=== PATIENT | female | born 1995 | race Asian ===

== ENCOUNTER 2020-12-04 15:52 | Inpatient (IN) | payer MEDICAID, OTHER ==
[~2020-12-04] VITALS: Ht 160 cm; Wt 56.7 kg
[2020-12-04 17:01] LABS: BASOPHILS % (AUTO) 0.4 % (0.0-2.0); EOSINOPHILS % (AUTO) 0 % (1.0-6.0); HEMATOCRIT 40.2 % (36-46); HEMOGLOBIN 13.3 g/dL (12.0-16.0); LYMPHOCYTES # (AUTO) 1.2 K/uL (1.0-4.8); LYMPHOCYTES % (AUTO) 13.7 % (22.0-44.0); MEAN CORPUSCULAR HEMOGLOBIN 27.3 pg (26.0-34.0); MEAN CORPUSCULAR HGB CONC 33.2 G/dL (31.0-37.0); MEAN CORPUSCULAR VOLUME 82 fL (80-100); MONOCYTES # (AUTO) 0.5 K/uL (0.1-1.0); NEUTROPHILS # (AUTO) 7.2 K/uL (1.8-7.7); NEUTROPHILS % (AUTO) 79.9 % (40.0-70.0); PLATELET COUNT (AUTO) 391 K/uL (150-450); RED BLOOD CELL COUNT(AUTO) 4.88 MIL/uL (4.00-5.20); RED CELL DISTRIBUTION WIDTH 13.3 % (11.5-14.5)
[2020-12-04 17:09] LABS: ANION GAP 15 mmol/L (8-16); CALCIUM, TOTAL 9.8 mg/dL (8.8-10.5); CARBON DIOXIDE 26 mmol/L (22-29); CHLORIDE 102 mmol/L (98-107); CREATININE 1.02 mg/dL (0.60-1.30); GLOMERULAR FILTR. RATE CALC > 60 mL/min (>60); GLUCOSE,RANDOM 79 mg/dL (70-110); SODIUM SERUM 143 mmol/L (136-145); UREA NITROGEN, BLOOD 18 mg/dL (7-18)
[2020-12-04 17:15] LABS: ALANINE AMINOTRANSFERASE 21 U/L (12-78); ALKALINE PHOSPHATASE 82 U/L (46-116); ASPARTATE AMINOTRANSFERASE 20 U/L (15-37); BILIRUBIN,TOTAL 0.8 mg/dL (0.1-1.0); TOTAL PROTEIN, SERUM 8.8 g/dL (6.4-8.2)
[2020-12-04] MEDS ORDERED: LORazepam 2 MG TABLET PO PRN (17:30)
[2020-12-04] MEDS ORDERED: ZOLPIDEM TARTRATE 10 MG TABLET PO PRN (17:30)
[2020-12-04] MEDS ORDERED: HALOPERIDOL 5 MG TABLET PO PRN (17:30)
[2020-12-04 18:34] LABS: COVID AG,FIA SOURCE NASOPHARYNGEAL
[2020-12-04 18:40] LABS: APPEARANCE,URINE CLOUDY (CLEAR); BILIRUBIN,URINE NEGATIVE (NEGATIVE); GLUCOSE, URINE (UA) NEGATIVE (NEGATIVE); KETONES,URINE >=80 mg/dL (NEGATIVE); LEUKOCYTE ESTERASE ,URINE TRACE (NEGATIVE); NITRATE,URINE POSITIVE (NEGATIVE); OCCULT BLOOD,URINE NEGATIVE (NEGATIVE); PROTEIN,URINE POS 1+ (NEGATIVE); UROBILINOGEN,URINE 0.2 mg/dL (<=1.0)
[2020-12-04 19:01] LABS: BACTERIA,URINE Moderate /HPF (None Seen); RBC,URINE None Seen /HPF (0-2); SQUAMOUS EPITHELIAL CELL,UR Moderate /LPF (None Seen)
[2020-12-04 19:48] VITALS: BP 138/91
[2020-12-05 00:30] VITALS: BP 132/73
[2020-12-05 06:39] LABS: CHOL/HDL RATIO 3.2 (3.9-5.7); FREE T4 (FREE THYROXINE) 1.4 ng/dL (0.76-1.46); THYROID STIMULATING HORMONE 1.15 uIU/mL (0.36-3.74)
[2020-12-05 08:00] VITALS: BP 142/96
[2020-12-05] MEDS ORDERED: ACETAMINOPHEN 325 MG TABLET PO PRN (09:45)
[2020-12-05] MEDS ORDERED: ALBUTEROL SULFATE HFA 90 MCG/PUFF 8 GM INHALER IH PRN (09:45)
[2020-12-05] MEDS ORDERED: PETROLATUM,WHITE 28 GM JELLY TP PRN (09:45)
[2020-12-05] MEDS ORDERED: ONDANSETRON HCL 4 MG TABLET PO PRN (09:45)
[2020-12-05] MEDS ORDERED: MAGNESIUM HYDROXIDE SUSPENSION 30 ML UDCUP PO PRN (09:45)
[2020-12-05] MEDS ORDERED: DOCUSATE SODIUM 100 MG CAPSULE PO PRN (09:45)
[2020-12-05] MEDS ORDERED: LOPERAMIDE HCL 2 MG CAPSULE PO PRN (09:45)
[2020-12-05] MEDS ORDERED: OMEPRAZOLE 20 MG CAPSULE PO PRN (09:45)
[2020-12-05] MEDS ORDERED: MAG HYDROX/AL HYDROX/SIMETH ES 30 ML SUSPENSION UDCUP PO PRN (09:45)
[2020-12-05] MEDS ORDERED: BACITRACIN 28 GM OINTMENT TP PRN (09:45)
[2020-12-05] MEDS ORDERED: IBUPROFEN 600 MG TABLET PO PRN (09:45)
[2020-12-05] MEDS ORDERED: BENZOCAINE/MENTHOL LOZENGE PO PRN (09:45)
[2020-12-05] MEDS ORDERED: CloNIDine HCL 0.1 MG TABLET PO PRN (09:45)
[2020-12-05 10:04] LABS: GLUCOMETER DEV NAME(LOC) 3E.I 2; GLUCOSE,POINT OF CARE 141 MG/DL (70-110)
[2020-12-05] MEDS: CEPHALEXIN MONOHYDRATE 500 MG CAPSULE PO SCH ×2 (10:26→16:38)
[2020-12-05 13:07] LABS: AMPHET/METH SCREEN,URINE NEGATIVE (NEGATIVE); BARBITURATE SCREEN, URINE NEGATIVE (NEGATIVE); BENZODIAZEPINES SCREEN,URINE NEGATIVE (NEGATIVE); CANNABINOID SCREEN,URINE NEGATIVE (NEGATIVE); COCAINE SCREEN,URINE NEGATIVE (NEGATIVE); METHADONE SCREEN, URINE NEGATIVE (NEGATIVE); OPIATE SCREEN,URINE NEGATIVE (NEGATIVE); PHENCYCLIDINE SCREEN,URINE NEGATIVE (NEGATIVE)
[2020-12-05 16:36] VITALS: BP 119/75
[2020-12-06 08:50] VITALS: BP 85/51
[2020-12-06] MEDS: CEPHALEXIN MONOHYDRATE 500 MG CAPSULE PO SCH ×2 (09:41→17:08)
[2020-12-06 20:00] VITALS: BP 126/74
[2020-12-07 00:19] VITALS: BP 139/84
[2020-12-07 08:48] VITALS: BP 138/62
[2020-12-07] MEDS: CEPHALEXIN MONOHYDRATE 500 MG CAPSULE PO SCH ×2 (09:13→17:22)
[2020-12-07] MEDS: CITALOPRAM HYDROBROMIDE 20 MG TABLET PO SCH (09:13)
[2020-12-07 17:58] LABS: AMPHET/METH SCREEN,URINE NEGATIVE (NEGATIVE); BARBITURATE SCREEN, URINE NEGATIVE (NEGATIVE); BENZODIAZEPINES SCREEN,URINE NEGATIVE (NEGATIVE); CANNABINOID SCREEN,URINE NEGATIVE (NEGATIVE); COCAINE SCREEN,URINE NEGATIVE (NEGATIVE); METHADONE SCREEN, URINE NEGATIVE (NEGATIVE); OPIATE SCREEN,URINE NEGATIVE (NEGATIVE)
[2020-12-07 17:59] LABS: PHENCYCLIDINE SCREEN,URINE NEGATIVE (NEGATIVE)
[2020-12-07] MEDS: RisperiDONE 2 MG TABLET PO SCH (19:07)
[2020-12-07] MEDS ORDERED: OLANZapine 5 MG TABLET PO SCH (21:00)
[2020-12-08 01:16] VITALS: BP 147/87
[2020-12-08] MEDS: RisperiDONE 2 MG TABLET PO SCH ×2 (08:03→16:33)
[2020-12-08] MEDS: CEPHALEXIN MONOHYDRATE 500 MG CAPSULE PO SCH ×2 (08:03→16:33)
[2020-12-08] MEDS: CITALOPRAM HYDROBROMIDE 20 MG TABLET PO SCH (08:03)
[2020-12-08 08:45] VITALS: BP 104/60
[2020-12-08 16:15] VITALS: BP 105/71
[2020-12-09] MEDS: CEPHALEXIN MONOHYDRATE 500 MG CAPSULE PO SCH ×2 (08:04→16:46)
[2020-12-09] MEDS: CITALOPRAM HYDROBROMIDE 20 MG TABLET PO SCH (08:04)
[2020-12-09] MEDS: RisperiDONE 2 MG TABLET PO SCH ×2 (08:04→16:46)
[2020-12-09 08:16] VITALS: BP 102/71
[2020-12-09 16:00] VITALS: BP 97/59
[2020-12-10 08:00] VITALS: BP 127/86
[2020-12-10] MEDS: CEPHALEXIN MONOHYDRATE 500 MG CAPSULE PO SCH ×2 (10:23→17:00)
[2020-12-10] MEDS: CITALOPRAM HYDROBROMIDE 20 MG TABLET PO SCH (10:23)
[2020-12-10] MEDS: RisperiDONE 2 MG TABLET PO SCH ×2 (10:23→17:00)
[2020-12-10 16:00] VITALS: BP 105/64
[2020-12-10 21:38] LABS: COVID AG,FIA SOURCE NASOPHARYNGEAL
[2020-12-11] MEDS: RisperiDONE 2 MG TABLET PO SCH ×2 (08:04→16:13)
[2020-12-11] MEDS: CITALOPRAM HYDROBROMIDE 20 MG TABLET PO SCH (08:04)
[2020-12-11] MEDS: CEPHALEXIN MONOHYDRATE 500 MG CAPSULE PO SCH ×2 (08:04→16:13)
[2020-12-11 08:52] VITALS: BP 129/83
[2020-12-11 16:30] VITALS: BP 106/79
[2020-12-12 08:08] VITALS: BP 115/75
[2020-12-12] MEDS: CEPHALEXIN MONOHYDRATE 500 MG CAPSULE PO SCH (08:13)
[2020-12-12] MEDS: CITALOPRAM HYDROBROMIDE 20 MG TABLET PO SCH (08:13)
[2020-12-12] MEDS: RisperiDONE 2 MG TABLET PO SCH ×2 (08:13→16:05)
[2020-12-12 16:25] VITALS: BP 118/78
[2020-12-13 02:40] VITALS: BP 102/69
[2020-12-13 08:00] VITALS: BP 113/71
[2020-12-13] MEDS: RisperiDONE 2 MG TABLET PO SCH ×2 (09:00→16:19)
[2020-12-13] MEDS: CITALOPRAM HYDROBROMIDE 20 MG TABLET PO SCH (09:00)
[2020-12-13 16:00] VITALS: BP 102/68
[2020-12-13 20:00] VITALS: BP 102/68
[2020-12-14 02:31] VITALS: BP 100/64
[2020-12-14] MEDS: CITALOPRAM HYDROBROMIDE 20 MG TABLET PO SCH (08:33)
[2020-12-14] MEDS: RisperiDONE 2 MG TABLET PO SCH ×2 (08:33→16:03)
[2020-12-14 08:47] VITALS: BP 116/74
[2020-12-14 16:00] VITALS: BP 115/73
[2020-12-15] MEDS: CITALOPRAM HYDROBROMIDE 20 MG TABLET PO SCH (08:12)
[2020-12-15] MEDS: RisperiDONE 2 MG TABLET PO SCH ×2 (08:12→17:10)
[2020-12-15 08:44] VITALS: BP 102/72
[2020-12-15 16:00] VITALS: BP 110/64
[2020-12-16 04:50] VITALS: BP 106/68
[2020-12-16] MEDS: CITALOPRAM HYDROBROMIDE 20 MG TABLET PO SCH (08:10)
[2020-12-16] MEDS: RisperiDONE 2 MG TABLET PO SCH ×2 (08:11→16:12)
[2020-12-16 08:31] VITALS: BP 129/70
[2020-12-16 16:00] VITALS: BP 105/63
[2020-12-17 04:01] VITALS: BP 104/65
[2020-12-17 08:23] VITALS: BP 101/73
[2020-12-17] MEDS: RisperiDONE 2 MG TABLET PO SCH (08:41)
[2020-12-17] MEDS: CITALOPRAM HYDROBROMIDE 20 MG TABLET PO SCH (08:41)
[2020-12-17] MEDS ORDERED: CITA-144 PO (12:34)
[2020-12-17] MEDS ORDERED: RISP1TAB48 PO (12:39)
== END 2020-12-17 13:45 | disposition home or self-care (01) | DRG 750 ==
LOC: EMS 15:52 → 3EI 17:30
PROVIDERS: ADMIT Psychiatry & Neurology Psychiatry; ATTEND Psychiatry & Neurology Psychiatry
DX: F20.9 Schizophrenia, unspecified (principal); R45.851 Suicidal ideations; Z59.0 Homelessness; F17.200 Nicotine dependence, unspecified, uncomplicated; F41.9 Anxiety disorder, unspecified; F95.9 Tic disorder, unspecified; G47.00 Insomnia, unspecified; K59.00 Constipation, unspecified; N39.0 Urinary tract infection, site not specified; Z20.822 Contact with and (suspected) exposure to COVID-19
CPT/HCPCS: 80053; 80061; 80307; 81001; 82962; 84439; 84443; 84703; 85025; 87077; 87086; 87186; 99285; G0480